=== PATIENT | male | born 1950 | race Caucasian/White ===

== ENCOUNTER 2017-09-28 16:11 | Inpatient (IN) | payer OTHER ==
[~2017-09-28] VITALS: Ht 182.9 cm; Wt 85.1 kg
[~2017-09-28 16:11] MED LIST: ADULT ASPIRIN81 MG PO; ASCORBIC ACID500 M3 PO; COUMADIN1 MG PO; DOCUSATE SODIU100 MG PO; FOLIC ACID1 MG PO; HUMALOG100 UNIT/2 SC; JANUVIA25 MG PO; LAXATIVE5 M1 PO; LIPITOR80 MG PO; LISINOPRIL2.5 MG PO; LOVENOX80 MG/0.8 SC; METOPROLOL TART25 MG PO; ONE DAILY WITH1 EACH PO; OXAYDO5 MG PO; Ocean Nasal 0.65% BOTH NARES; PANTOPRAZOLE SO40 MG PO; SANTYL30 GM TP; SENNA8.6 MG PO; THERAGRAN1 TABLET PO; TYLENOL REGULA325 MG PO; WARFARIN SODIUM5 MG PO
[2017-09-28 18:55] LABS: BASOPHIL (%) 0.6 % (0-1); BASOPHIL COUNT 0.1 K/uL (0-0.1); EOSINOPHIL (%) 1.5 % (0-5); EOSINOPHIL COUNT 0.2 K/uL (0-0.3); HEMATOCRIT 38.6 % (38.0-50.0); HEMOGLOBIN 12.7 G/DL (12.5-16.6); IMMATURE GRANULOCYTE (%) 0.3 % (0.0-0.7); LYMPHOCYTE (%) 39.1 % (15-42); LYMPHOCYTE COUNT 5.7 K/uL (1.0-2.8); MCH 26.5 PG (29.0-34.0); MCHC 32.9 G/DL (30.0-36.0); MCV 80.4 FL (86-99); MONOCYTE (%) 4.8 % (3-12); MONOCYTE COUNT 0.7 K/uL (0-0.8); NEUTROPHIL (%) 53.7 % (45-76); NEUTROPHIL COUNT 7.8 K/uL (1.8-6.4); PLATELET COUNT 417 K/uL (156-360); RBC DIS.WIDTH-CV 14.4 % (11.8-14.6); RBC DIS.WIDTH-SD 41.9 % (39-53); WHITE BLOOD COUNT 14.6 K/uL (4.1-10.2)
[2017-09-28 19:04] LABS: PTT 37.1 SEC (25-37)
[2017-09-28 19:05] LABS: CHLORIDE 103 mEq/L (99-109); POTASSIUM 3.8 mEq/L (3.7-5.4); SODIUM 142 mEq/L (136-147)
[2017-09-28 19:07] LABS: GLUCOSE 146 mg/dL (70-99); INTER. NORMALIZED RATIO 1.4; TOTAL PROTEIN 7.7 g/dL (6.4-8.3)
[2017-09-28 19:09] LABS: TOTAL BILIRUBIN 0.4 mg/dL (0.0-1.0)
[2017-09-28 19:11] LABS: ALKALINE PHOSPHATASE 78 IU/L (3-129); GFR ESTIMATE (CALCULATED) > 59 mL/min/ (58.99-99999)
[2017-09-28 19:12] LABS: AST (GOT) 24 IU/L (2-34); UREA NITROGEN (BUN) 16 mg/dL (9-23)
[2017-09-28 19:14] LABS: ALT (GPT) 23 IU/L (3-49)
[2017-09-28] MEDS ORDERED: FOLIC ACID1 MG PO (19:35)
[2017-09-28] MEDS ORDERED: ELIQUIS5 MG PO (19:36)
[2017-09-28] MEDS ORDERED: VICTOZA0.6 MG/0.1 SC (19:36)
[2017-09-28] MEDS ORDERED: DAILY VITE1 EAC1 PO (19:36)
[2017-09-28] MEDS ORDERED: LISINOPRIL2.5 MG PO (19:37)
[2017-09-28] MEDS ORDERED: ALPRAZOLAM0.25 M2 PO (19:37)
[2017-09-28 21:40] VITALS: BP 149/79
[2017-09-28 22:00] VITALS: BP 146/79
[2017-09-28 23:24] VITALS: BP 134/72
[2017-09-29 04:07] VITALS: BP 133/76
[2017-09-29 07:06] LABS: HEMATOCRIT 37.4 % (38.0-50.0); HEMOGLOBIN 12.2 G/DL (12.5-16.6); MCH 26.3 PG (29.0-34.0); MCHC 32.6 G/DL (30.0-36.0); MCV 80.8 FL (86-99); PLATELET COUNT 380 K/uL (156-360); RBC DIS.WIDTH-CV 14.6 % (11.8-14.6); RBC DIS.WIDTH-SD 42.8 % (39-53); RED BLOOD COUNT 4.63 M/uL (4.00-5.50); WHITE BLOOD COUNT 10.8 K/uL (4.1-10.2)
[2017-09-29 07:26] LABS: CHLORIDE 105 MEQ/L (99-109); CREATININE 0.9 MG/DL (0.6-1.3); GFR ESTIMATE (CALCULATED) > 59 mL/min/ (58.99-99999); GLUCOSE 135 mg/dL (70-99); POTASSIUM 3.9 MEQ/L (3.7-5.4); SODIUM 140 MEQ/L (136-147); UREA NITROGEN (BUN) 14 mg/dL (9-23)
[2017-09-29 07:28] VITALS: BP 124/74
[2017-09-29 09:09] LABS: HEMOGLOBIN A1c (GLYCOHEMOGLOB) 8.6 % (Below 5.7)
[2017-09-29 11:23] VITALS: BP 101/66
[2017-09-29 15:13] VITALS: BP 138/74
[2017-09-29 19:27] VITALS: BP 114/62
[2017-09-29 23:22] VITALS: BP 119/72
[2017-09-30 05:07] VITALS: BP 105/61
[2017-09-30 08:20] VITALS: BP 113/66
[2017-09-30 08:34] LABS: BASOPHIL (%) 0.9 % (0-1); BASOPHIL COUNT 0.1 K/uL (0-0.1); EOSINOPHIL (%) 3.1 % (0-5); EOSINOPHIL COUNT 0.3 K/uL (0-0.3); HEMATOCRIT 37.6 % (38.0-50.0); HEMOGLOBIN 11.9 G/DL (12.5-16.6); IMMATURE GRANULOCYTE (%) 0.3 % (0.0-0.7); LYMPHOCYTE COUNT 2.7 K/uL (1.0-2.8); MCH 25.9 PG (29.0-34.0); MCHC 31.6 G/DL (30.0-36.0); MCV 81.7 FL (86-99); MONOCYTE (%) 5.4 % (3-12); MONOCYTE COUNT 0.5 K/uL (0-0.8); NEUTROPHIL (%) 61.3 % (45-76); NEUTROPHIL COUNT 5.6 K/uL (1.8-6.4); PLATELET COUNT 338 K/uL (156-360); RBC DIS.WIDTH-CV 14.8 % (11.8-14.6); RBC DIS.WIDTH-SD 44.2 % (39-53); WHITE BLOOD COUNT 9.1 K/uL (4.1-10.2)
[2017-09-30 12:20] VITALS: BP 107/62
[2017-09-30 16:04] VITALS: BP 101/64
[2017-09-30 20:16] VITALS: BP 111/77
[2017-09-30 23:37] VITALS: BP 119/69
[2017-10-01 03:45] VITALS: BP 121/67
[2017-10-01 07:57] VITALS: BP 137/69
[2017-10-01 12:31] VITALS: BP 132/76
[2017-10-01 16:54] VITALS: BP 127/74
[2017-10-01 19:40] VITALS: BP 143/70
[2017-10-01 23:35] VITALS: BP 134/82
[2017-10-02 03:36] VITALS: BP 142/78
[2017-10-02 06:29] LABS: C DIFF TOXIN NEGATIVE (NEGATIVE)
[2017-10-02 07:48] VITALS: BP 166/88
[2017-10-02 09:22] LABS: CREATININE 0.9 MG/DL (0.6-1.3); GFR ESTIMATE (CALCULATED) > 59 mL/min/ (58.99-99999); VANCOMYCIN, TROUGH 18.4 MCG/ML (10-20)
[2017-10-02 11:36] VITALS: BP 134/76
[2017-10-02 16:30] VITALS: BP 134/71
[2017-10-02 20:19] VITALS: BP 139/70
[2017-10-02 23:32] VITALS: BP 142/80
[2017-10-03 04:45] VITALS: BP 157/80
[2017-10-03 06:56] LABS: HEMATOCRIT 39.4 % (38.0-50.0); HEMOGLOBIN 12.4 G/DL (12.5-16.6); MCH 25.5 PG (29.0-34.0); MCHC 31.5 G/DL (30.0-36.0); MCV 80.9 FL (86-99); PLATELET COUNT 378 K/uL (156-360); RBC DIS.WIDTH-CV 14.7 % (11.8-14.6); RBC DIS.WIDTH-SD 43.3 % (39-53); RED BLOOD COUNT 4.87 M/uL (4.00-5.50); WHITE BLOOD COUNT 12.9 K/uL (4.1-10.2)
[2017-10-03 07:39] LABS: CHLORIDE 110 MEQ/L (99-109); GFR ESTIMATE (CALCULATED) > 59 mL/min/ (58.99-99999); GLUCOSE 132 mg/dL (70-99); POTASSIUM 4.2 MEQ/L (3.7-5.4); SODIUM 144 MEQ/L (136-147); UREA NITROGEN (BUN) 12 mg/dL (9-23)
[2017-10-03 08:17] VITALS: BP 154/78
[2017-10-03 11:35] VITALS: BP 155/77
[2017-10-03] MEDS ORDERED: KEFLEX500 MG PO (12:47)
[2017-10-03] MEDS ORDERED: BACTRIM,SEPT1 TABLET PO (12:47)
== END 2017-10-03 16:48 | disposition home or self-care (01) | DRG 617 ==
LOC: EME 16:11 → EDOF 20:19 → 3EAST 20:19 → ENRESERV 20:20 → 3EAST 21:30
PROVIDERS: Emergency Medicine; Hospitalist; Internal Medicine; Surgery
PROC: 0Y6Q0Z0 Detachment at Left 1st Toe, Complete, Open Approach (ICD-10-PCS; principal; 2017-09-29)
DX: E11.69 Type 2 diabetes mellitus with other specified complication (principal); M86.172 Other acute osteomyelitis, left ankle and foot; E11.621 Type 2 diabetes mellitus with foot ulcer; L97.524 Non-pressure chronic ulcer of other part of left foot with necrosis of bone; E11.51 Type 2 diabetes mellitus with diabetic peripheral angiopathy without gangrene; E11.40 Type 2 diabetes mellitus with diabetic neuropathy, unspecified; B95.61 Methicillin susceptible Staphylococcus aureus infection as the cause of diseases classified elsewhere; B96.89 Other specified bacterial agents as the cause of diseases classified elsewhere; I10 Essential (primary) hypertension; I48.91 Unspecified atrial fibrillation; I25.10 Atherosclerotic heart disease of native coronary artery without angina pectoris; E78.5 Hyperlipidemia, unspecified; K21.9 Gastro-esophageal reflux disease without esophagitis; F41.9 Anxiety disorder, unspecified; Z95.1 Presence of aortocoronary bypass graft; Z79.01 Long term (current) use of anticoagulants; Z79.82 Long term (current) use of aspirin; Z79.84 Long term (current) use of oral hypoglycemic drugs; Z86.718 Personal history of other venous thrombosis and embolism; Z87.11 Personal history of peptic ulcer disease; Z87.891 Personal history of nicotine dependence
CPT/HCPCS: 73630; 80048; 80053; 80202; 82565; 82948; 83036; 83605; 85025; 85027; 85610; 85651; 85730; 86140; 87040; 87070; 87075; 87076; 87077; 87147; 87186; 87205; 87493; 88305; 88311; 99281; 99285; J0295; J1100; J1815; J2250; J2405; J2543; J3010; J3370; J7030; J7050; S0020

== ENCOUNTER 2017-11-17 13:16 | Day surgery (SDC) | payer OTHER ==
[~2017-11-17] VITALS: Ht 182.9 cm; Wt 101.6 kg
[~2017-11-17 13:16] MED LIST changes: +ALPRAZOLAM0.25 M2 PO; +BACTRIM,SEPT1 TABLET PO; +CIPRO500 MG PO; +DAILY VITE1 EAC1 PO; +ELIQUIS5 MG PO; +KEFLEX500 MG PO; +VICTOZA0.6 MG/0.1 SC
[2017-11-17 14:00] LABS: PTT 25.6 SEC (25-37)
[2017-11-17 14:11] VITALS: BP 102/78
[2017-11-17 14:56] LABS: INTER. NORMALIZED RATIO 1.1
[2017-11-17 18:50] VITALS: BP 121/70
== END 2017-11-17 19:30 | disposition home or self-care (01) ==
LOC: SDC 13:16
PROVIDERS: Podiatrist Foot & Ankle Surgery
PROC: 0Y6N0Z9 Detachment at Left Foot, Partial 1st Ray, Open Approach (ICD-10-PCS; principal; 2017-11-17)
DX: E11.69 Type 2 diabetes mellitus with other specified complication (principal); M86.9 Osteomyelitis, unspecified; I25.10 Atherosclerotic heart disease of native coronary artery without angina pectoris; Z89.412 Acquired absence of left great toe; I10 Essential (primary) hypertension; Z87.891 Personal history of nicotine dependence; K21.9 Gastro-esophageal reflux disease without esophagitis; Z79.82 Long term (current) use of aspirin; Z79.01 Long term (current) use of anticoagulants; Z86.718 Personal history of other venous thrombosis and embolism
CPT/HCPCS: 82948; 85610; 85730; 87070; 87075; 87077; 87205; 88305; 88311; J0690; J2405; J3010; S0020